=== PATIENT | female | born 2000 | race Two or more races ===

== ENCOUNTER 2024-12-12 14:35 | Emergency (ER) | payer OTHER ==
[~2024-12-12] VITALS: Ht 160 cm; Wt 127.0 kg
[2024-12-12 18:20] LABS: PH,URINE 5.5 (5.0-8.0); URINE APPEARANCE Clear; URINE BILIRRUBIN Negative (NEGATIVE); URINE BLOOD Negative; URINE COLOR Yellow; URINE GLUCOSE Negative (NEGATIVE); URINE KETONE Negative (NEGATIVE); URINE LEUKOCYTE Negative; URINE NITRATE Negative; URINE PROTEIN Negative (NEGATIVE); URINE UROBILINOGEN 0.2 E.U./dl
[2024-12-12 18:24] LABS: URINE BACTERIA 2305.6 uL (0.0-1933); URINE EPITHELIAL CELLS 32.7 uL (0.0-38.8); URINE RBC 31.3 uL (0.0-20.8); URINE WBC 10.6 uL (0.0-23.2)
[2024-12-12 18:28] LABS: URINE CAST 0.14 uL (0.0-1.40)
[2024-12-12 18:58] LABS: HEMATOCRIT 39.7 % (36.0-45.00); HEMOGLOBIN 13.3 g/dL (12.0-15.00); MEAN CELL VOLUME 87.9 fL (80.00-100.00); MEAN CORPUSCULAR HEMOGLOBIN 29.4 pg (27.00-32.0); MEAN CORPUSCULAR HGB CONC 33.4 g/dl (32.0-36.0); PLATELET COUNT 331 K/uL (150-450); RED BLOOD COUNT 4.51 M/uL (4.00-6.00); RED CELL DISTRIBUTION WIDTH 14.4 % (11.5-14.5)
[2024-12-12 19:20] LABS: ALBUMIN 3.4 gm/dL (3.4-5.0); BILIRUBIN TOTAL 0.39 mg/dL (0.3-1.2); CALCIUM 9.3 mg/dL (8.5-10.1); CREATININE SERUM 0.67 mg/dL (0.55-1.02); GFR 109.07; GLOBULINA 3.8 G/DL (2.4-3.5); POTASSIUM 4.01 mEq/L (3.5-5.1); TOTAL PROTEIN 7.2 gm/dL (6.4-8.2)
== END 2024-12-12 19:42 | disposition home or self-care (01) ==
LOC: ER 14:37
PROVIDERS: General Practice
DX: I10 Essential (primary) hypertension (principal); Z88.8 Allergy status to other drugs, medicaments and biological substances; Z91.013 Allergy to seafood

== ENCOUNTER 2025-02-28 12:42 | Emergency (ER) | payer OTHER ==
[~2025-02-28] VITALS: Ht 160 cm; Wt 127.9 kg
[2025-02-28] MEDS ORDERED: CABERGOLINE0.5 MG PO (12:59)
[2025-02-28] MEDS ORDERED: ELVITEG/COB/EMTRI/TENOFO DISOP 1 UDTAB TABLET PO ONE (13:45)
== END 2025-02-28 14:35 | disposition home or self-care (01) ==
LOC: ER 12:43
DX: S61.432A Puncture wound without foreign body of left hand, initial encounter (principal); W46.1XXA Contact with contaminated hypodermic needle, initial encounter; Y93.89 Activity, other specified; Y92.238 Other place in hospital as the place of occurrence of the external cause; Y99.9 Unspecified external cause status; Z88.8 Allergy status to other drugs, medicaments and biological substances; Z91.013 Allergy to seafood

== ENCOUNTER 2025-04-09 11:09 | Outpatient (CLI) | payer OTHER ==
[~2025-04-09 11:09] MED LIST: CABERGOLINE0.5 MG PO
== END 2025-04-09 11:14 | disposition home or self-care (01) ==
LOC: MRI 11:09
PROVIDERS: ATTEND Anesthesiology
DX: H53.9 Unspecified visual disturbance (principal); D35.2 Benign neoplasm of pituitary gland
CPT/HCPCS: 70553